=== PATIENT | female | born 1980 | race Caucasian/White ===

== ENCOUNTER 2020-02-18 12:37 | Emergency (ER) | payer OTHER ==
[~2020-02-18] VITALS: Ht 165.1 cm; Wt 80.0 kg
[~2020-02-18 12:37] MED LIST: NOCURR
[2020-02-18] MEDS ORDERED: KETOROLAC TROMETHAMINE 30 MG/ML VIAL IM ONE (15:15)
[2020-02-18 15:30] VITALS: BP 145/91
== END 2020-02-18 15:48 | disposition home or self-care (01) ==
LOC: EMS 12:48
DX: S93.402A Sprain of unspecified ligament of left ankle, initial encounter (principal); Z88.6 Allergy status to analgesic agent; X50.9XXA Other and unspecified overexertion or strenuous movements or postures, initial encounter; Y93.89 Activity, other specified; Y92.89 Other specified places as the place of occurrence of the external cause; Y99.8 Other external cause status
CPT/HCPCS: 73610; 73630; 81025; 96372; 99284; J1885

== ENCOUNTER 2023-12-13 20:41 | Emergency (ER) | payer OTHER ==
[~2023-12-13] VITALS: Ht 162.6 cm; Wt 78.2 kg
[2023-12-13 20:50] VITALS: TEMP 98.4
[2023-12-13 22:23] LABS: APPEARANCE,URINE CLEAR (CLEAR); BILIRUBIN,URINE NEGATIVE (NEGATIVE); COLOR,URINE YELLOW (YELLOW); GLUCOSE, URINE (UA) NEGATIVE (NEGATIVE); KETONES,URINE NEGATIVE (NEGATIVE); LEUKOCYTE ESTERASE ,URINE NEGATIVE (NEGATIVE); NITRATE,URINE NEGATIVE (NEGATIVE); OCCULT BLOOD,URINE NEGATIVE (NEGATIVE); PH,URINE 5.5 (5.0-8.0); PROTEIN,URINE TRACE mg/dL (NEGATIVE); SPECIFIC GRAVITIY, URINE 1.032 (1.003-1.030); UROBILINOGEN,URINE <=1.0 mg/dL (<=1.0)
[2023-12-13 22:28] LABS: HCG,QUAL URINE NEGATIVE (NEGATIVE)
[2023-12-14 01:00] VITALS: BP 112/85; PULSE 102; RESP 14
[2023-12-14] MEDS: METHOCARBAMOL 500 MG TABLET PO ONE (01:09)
[2023-12-14] MEDS: ACETAMINOPHEN 325 MG TABLET PO ONE (01:10)
[2023-12-14] MEDS: OxyCODONE HCL/ACETAMINOPHEN 5-325 MG TABLET PO ONE (01:10)
[2023-12-14] MEDS ORDERED: TRAM-559 PO (02:30)
[2023-12-14] MEDS ORDERED: METH-659 PO (02:34)
[2023-12-14] MEDS ORDERED: LIDO1ADH72 TD (02:34)
[2023-12-14] MEDS: LIDOCAINE 5% TRANSDERMAL PATCH TD ONE (02:36)
== END 2023-12-14 02:51 | disposition home or self-care (01) ==
LOC: EMS 20:41
DX: S33.6XXA Sprain of sacroiliac joint, initial encounter (principal); S80.01XA Contusion of right knee, initial encounter; Z98.890 Other specified postprocedural states; Z91.040 Latex allergy status; Z88.6 Allergy status to analgesic agent; W18.49XA Other slipping, tripping and stumbling without falling, initial encounter; Y93.89 Activity, other specified; Y92.89 Other specified places as the place of occurrence of the external cause; Y99.8 Other external cause status
CPT/HCPCS: 29505; 81003; 84703; 99284

== ENCOUNTER 2024-07-01 07:22 | Emergency (ER) | payer OTHER ==
[~2024-07-01] VITALS: Ht 162.6 cm; Wt 86.4 kg
[~2024-07-01 07:22] MED LIST changes: +LIDO1ADH72 TD; +METH-659 PO; +TRAM50TA5 PO
[2024-07-01 07:26] VITALS: BP 141/83; PULSE 98; RESP 18; TEMP 98.6; O2SAT 99
[2024-07-01] MEDS ORDERED: CEPH-558 PO (07:47)
[2024-07-01] MEDS ORDERED: SULF-261 PO (07:47)
[2024-07-01] MEDS ORDERED: TRAM50TA5 PO (07:47)
[2024-07-01] MEDS: HYDROCODONE/ACETAMINOPHEN 5-325 MG TABLET PO ONE (07:52)
[2024-07-01] MEDS: SULFAMETHOX/TRIMETH DS 800-160 MG/TABLET PO ONE (07:52)
[2024-07-01] MEDS: CEPHALEXIN MONOHYDRATE 500 MG CAPSULE PO ONE (07:52)
== END 2024-07-01 07:59 | disposition home or self-care (01) ==
LOC: EMS 07:22
DX: H60.11 Cellulitis of right external ear (principal); Z88.6 Allergy status to analgesic agent; Z91.040 Latex allergy status
CPT/HCPCS: 99284; Z7502; Z7610

== ENCOUNTER 2025-02-12 08:45 | Emergency (ER) | payer OTHER ==
[~2025-02-12] VITALS: Ht 165.1 cm; Wt 86.4 kg
[~2025-02-12 08:45] MED LIST changes: +CEPH-558 PO; -LIDO1ADH72 TD; -NOCURR; +SULF-261 PO
[2025-02-12 08:54] VITALS: TEMP 98.2
[2025-02-12 09:01] VITALS: BP 124/86; PULSE 79; RESP 18; O2SAT 98
[2025-02-12] MEDS ORDERED: CEPH-558 PO (10:03)
[2025-02-12] MEDS ORDERED: DOXY-354 PO (10:03)
[2025-02-12] MEDS ORDERED: ACET-66 PO (10:03)
== END 2025-02-12 10:32 | disposition home or self-care (01) ==
LOC: EMS 08:47
DX: L02.415 Cutaneous abscess of right lower limb (principal); R50.9 Fever, unspecified; Z88.6 Allergy status to analgesic agent; Z91.040 Latex allergy status; Z87.440 Personal history of urinary (tract) infections
CPT/HCPCS: 99283; Z7502